=== PATIENT | female | born 1935 | race Caucasian/White ===

== ENCOUNTER 2016-08-20 10:13 | Day surgery (SDC) | payer OTHER ==
[~2016-08-20] VITALS: Ht 162.6 cm; Wt 58.1 kg
--- NOTE | ~2016-08-20 | O ---
[facility] [place] [address] OPERATIVE REPORT Name: CHANCE BARCLAY Room #: DEP [facility]..#: [id number] Admission: 08/20/16 Attend Phys: Chris Ibrahim MD Discharge: 08/20/16 Date of : 37 Report #: [id number] THIS REPORT FOR: //name// CC: [facility] physician/PCP Nasreen Ibrahim DATE OF SERVICE: 08/20/2016 PREOPERATIVE DIAGNOSIS: Unilateral right nasal lacrimal duct obstruction. POSTOPERATIVE DIAGNOSIS: Unilateral right nasal lacrimal duct obstruction. OPERATION PERFORMED: Unilateral right endoscopic balloon dacryocystoplasty with silicone intubation. ANESTHESIA: General. COMPLICATIONS: None. INDICATIONS FOR SURGERY: This patient has acquired unilateral nasal lacrimal duct stenosis with chronic tearing and discharge. The current procedures are undertaken in order to improve the patient's level of lacrimal outflow and visual clarity. Informed consent was obtained to include but not limited to the potential risks for damage to the eye, loss of vision, bleeding, infection, failure to improve the problem and need for further surgery. DESCRIPTION OF OPERATION: The patient was taken to the operating room, where general anesthesia was administered. The medial canthus was anesthetized with 2% Xylocaine with epinephrine mixed with equal parts of 0.75% Marcaine with Wydase. The lateral wall of the nose was then injected with the same anesthetic mixture. The nose was packed with Afrin-soaked Cottonoids. The patient was then prepped and draped in the usual sterile fashion. The superior and inferior puncta were then atraumatically dilated with a punctum dilator. A size 0 lacrimal probe was then passed through the superior canalicular system and through the stenosed nasal lacrimal duct. The nasal packing was removed and the endoscope was brought into the field. The inferior turbinate was gently infractured with a [place] periosteal elevator to allow visualization of the inferior meatus in the area of the opening of the valve of Hasner in the nose. The probe was found and confirmed to be in the proper location. It was removed and subsequently replaced with a size 1 and a size 2 Nolen probe, which also had their passage confirmed endoscopically to be in the proper location. [facility] [address] [place] [address] OPERATIVE REPORT Name: PIACHANCE SCHMITT Room #: [place] [facility] [place]#: [id number] Admission: 08/20/16 Attend Phys: Chris Ibrahim MD Discharge: 08/20/16 Date of : 37 Report #: [id number] A 3 x 15 LacriCatheter was lubricated with a small quantity of ophthalmic antibiotic ointment. The LacriCatheter was then passed through the superior canalicular system and the stenosed nasal lacrimal duct. The LacriCatheter was confirmed to be in the proper location endoscopically intranasally in the inferior meatus. The LacriCatheter was inflated to 9 atmospheres for 90 seconds and deflated. The catheter was then inflated to 9 atmospheres for 60 seconds. The catheter was then withdrawn to the proximal black ring. It was then inflated to 9 atmospheres for 90 seconds. The balloon was then deflated and reinflated to 9 atmospheres for 60 seconds. The balloon was the aspirated and withdrawn to the distal black ring. It was then inflated to 9 atmospheres for 90 seconds. The balloon was deflated and reinflated to 9 atmospheres for 60 seconds. The balloon was then deflated and vigorously aspirated as it was withdrawn through the superior canalicular system. A Acuna tube was then passed through the superior canalicular system and out the dilated duct. The Acuna tube was secured under the inferior turbinate in the inferior meatus with a Acuna hook and retrieved endoscopically. The Acuna tube was then passed through the inferior canalicular system in a similar fashion and was retrieved endoscopically in the nose atraumatically. The Acuna tube was then secured to itself with 3 square throws and then to the lateral wall of the nose with a 5-0 Prolene suture. Antibiotic steroid drops were then placed in the eye. A small quantity of ophthalmic antibiotic ointment was placed on the Acuna tube. The patient was then transported to the recovery area with no anesthetic or operative complications being noted. <ELECTRONICALLY SIGNED> By: Chris Ibrahim MD 08/24/16 0614 [id number] Chris Ibrahim MD /nt
[2016-08-20] MEDS ORDERED: METHOTREXATE 22.5 MG PO (10:48)
[2016-08-20] MEDS ORDERED: FOLIC ACID1 MG PO (10:49)
[2016-08-20] MEDS ORDERED: MOBIC7.5 MG PO (10:50)
[2016-08-20] MEDS ORDERED: MIRALAX17 GM PO (10:51)
[2016-08-20] MEDS ORDERED: ASPIR 8181 MG PO (10:51)
[2016-08-20] MEDS ORDERED: CALCIUM 600 +1 EAC1 PO (10:51)
[2016-08-20] MEDS ORDERED: SIMVASTATIN40 MG PO (10:52)
[2016-08-20] MEDS ORDERED: MAXZIDE-25 MG1 EACH PO (10:52)
[2016-08-20] MEDS ORDERED: UNICOMPLEX M TA1 TA1 PO (10:53)
[2016-08-20] MEDS ORDERED: HYDROCODONE-AP1 EAC6 PO (10:56)
[2016-08-20] MEDS ORDERED: PROLIA60 MG/1 ML SQ (10:56)
[2016-08-20] MEDS ORDERED: CELEXA 20 MG TA20 MG PO (10:57)
[2016-08-20] MEDS ORDERED: PREDNISONE 5 MG5 M1 PO (10:58)
[2016-08-20] MEDS ORDERED: FLONASE 0.05%50 MCG NASAL (10:59)
[2016-08-20] MEDS ORDERED: CYMBALTA60 MG PO (11:01)
[2016-08-20 11:25] VITALS: BP 145/57
== END 2016-08-20 14:00 | disposition home or self-care (01) ==
LOC: TBA 10:13 → OR 10:13 → TBA 10:14 → OR 14:00
DX: H04.551 Acquired stenosis of right nasolacrimal duct (principal); M19.90 Unspecified osteoarthritis, unspecified site; I10 Essential (primary) hypertension; E78.4 Other hyperlipidemia
CPT/HCPCS: 50010; 50101; 50386; 50398; 50426; 51777; 55343; 56528; 62110; 62900; 70005